=== PATIENT | female | born 1950 | race Caucasian/White ===

== ENCOUNTER 2018-11-04 17:48 | Emergency (ER) | payer MEDICARE, OTHER ==
--- NOTE | 2018-11-04 18:14 | EDM.PDOC ---
ED HPI GENERAL MEDICAL PROBLEM - General Stated Complaint: possible blood clot in leg Time Seen by Provider: 11/04/18 18:00 Source of Information: Reports: Patient - History of Present Illness INITIAL COMMENTS - FREE TEXT/NARRATIVE: Patient is a 68 YO [place]F [place] the [place] presented to the ED because apparently the right t leg is colder then the left with associated mild swelling. Patient has a PVD and according to her , her legs are usually cold. Her She had a transcatheter stent placement in both iliac arteries. right leg Pain Score (Numeric/FACES): 4 - Related Data Allergies Allergy/AdvReac Type Severity Reaction Status Date / Time No Known Allergies Allergy Verified 11/04/18 18:17 Home Meds: Home Meds Hydrochlorothiazide 12.5 mg PO DAILY 10/15/15 [History] Latanoprost [Xalatan 0.005% Ophth Soln] 1 drop EYEBOTH BEDTIME 10/15/15 [History ] Lisinopril 10 mg PO DAILY 10/15/15 [History] Multivitamin with Minerals [Multiple Vitamin] 1 ea PO DAILY 10/15/15 [History] Rosuvastatin Calcium [Crestor] 10 mg PO DAILY 10/15/15 [History] Acetaminophen [Tylenol] 650 mg PO Q4H PRN 11/04/18 [History] Aspirin [Adult Low Dose Aspirin EC] 81 mg PO DAILY 11/04/18 [History] Calcium Carbonate/Vitamin D3 [Calcium 500-Vit D3 200 Caplet] 1 tab PO DAILY [History] Cyclobenzaprine [Flexeril] 10 mg PO BEDTIME 11/04/18 [History] Docusate Sodium [Colace] 100 mg PO BID PRN 11/04/18 [History] Ferrous Gluconate 324 mg PO TID 11/04/18 [History] Folic Acid 1 mg PO DAILY 11/04/18 [History] Thiamine HCl [Vitamin B-1] 100 mg PO DAILY 11/04/18 [History] diphenhydrAMINE HCl [Unisom Sleepmelts] 25 mg PO BEDTIME PRN 11/04/18 [History] Past Medical History HEENT History: Reports: Cataract, Glaucoma Cardiovascular History: Reports: Hypertension, Other (See Below) Other Cardiovascular History: PERIFERAL ARTERY DISEASE, LEFT LEG ULCER, TRANSCATHETER PLACEMMENT WITH STENT TO LEFT ILEAC ARTERY BILATERAL Musculoskeletal History: Reports: Back Pain, Chronic Psychiatric History: Reports: Addiction Other Psychiatric History: ALCOHOL ADMITTING TO 35 DRINKS PER WEEK Dermatologic History: Reports: Other (See Below) Other Dermatologic History: SORE ON LEFT EAR LOBE - Past Surgical History HEENT Surgical History: Reports: Other (See Below) Female Surgical History: Reports: Breast Biopsy ED ROS GENERAL - Review of Systems Review Of Systems: See Below Constitutional: Reports: No Symptoms HEENT: Reports: No Symptoms Respiratory: Reports: No Symptoms Cardiovascular: Reports: No Symptoms Endocrine: Reports: No Symptoms GI/Abdominal: Reports: No Symptoms : Reports: No Symptoms Musculoskeletal: Reports: No Symptoms Skin: Reports: Other (purplish discoloration RLE,no palpable pulse) ED EXAM, GENERAL - Physical Exam Exam: See Below Exam Limited By: No Limitations General Appearance: Alert Ears: Normal External Exam, Normal Canal, Hearing Grossly Normal Nose: Normal Inspection, Normal Mucosa Throat/Mouth: Normal Inspection, Normal Lips Head: Atraumatic, Normocephalic Neck: Normal Inspection Respiratory/Chest: No Respiratory Distress, Lungs Clear, Normal Breath Sounds Cardiovascular: Normal Peripheral Pulses, Regular Rate, Rhythm, No Edema, No Murmur GI/Abdominal: Normal Bowel Sounds, Non-Tender, No Organomegaly (Female) Exam: Normal External Exam, Normal Speculum Exam Rectal (Female) Exam: Normal Exam, Normal Rectal Tone Back Exam: Normal Inspection, Full Range of Motion Extremities: Normal Inspection, Normal Range of Motion, Other (purplisf discoloration on both feet) Neurological: Alert, Oriented, CN II-XII Intact Course - Vital Signs Text/Narrative:: doppler US-see result Case discussed with Dr Raissa Rossi patient on heaprin drip Transfer to [facility] [place] Last Recorded V/S: Last Vital Signs Temp 36.6 C 11/04/18 17:35 Pulse 105 H 11/04/18 17:35 Resp 18 11/04/18 17:35 BP 138/75 11/04/18 17:35 Pulse Ox 100 11/04/18 17:35 - Orders/Labs/Meds Orders: Active Orders 24 hr Category Date Time Status VL Duplex Lwr Ext Veins Ltd Rt [US] Stat Exams 11/04/18 18:00 Taken Heparin Sodium/0.45% NaCl [Heparin 25,000 Units in 1/2 Med 11/04/18 19:30 Active NS 500 ML] 25,000 units in 500 ml IV TITRATE Sodium Chloride 0.9% [Saline Flush] Med 11/04/18 18:42 Active 10 ml FLUSH ASDIRECTED PRN Saline Lock Insert [OM.PC] Routine Oth 11/04/18 18:42 Ordered Medication Orders Heparin Sodium/Sodium Chloride (Heparin 25,000 Units In 1/2 Ns 500 Ml) 25,000 units in 500 mls @ 19.922 mls/hr IV TITRATE RIA; Protocol Sodium Chloride (Saline Flush) 10 ml FLUSH ASDIRECTED PRN PRN Reason: Keep Vein Open Meds: Medications Generic Name Dose Route Start Last Admin Trade Name Freq PRN Reason Stop Dose Admin Heparin Sodium/Sodium Chloride 25,000 units in 500 mls @ 19.922 mls/hr 19:30 Heparin 25,000 Units In 1/2 Ns 500 Ml IV TITRATE RIA Protocol 18 UNITS/KG/HR Sodium Chloride 10 ml 11/04/18 18:42 Saline Flush FLUSH ASDIRECTED PRN Keep Vein Open Discontinued Medications Generic Name Dose Route Start Last Admin Trade Name Freq PRN Reason Stop Dose Admin Heparin Sodium (Porcine) 4,427 units 11/04/18 19:30 Heparin Sodium IVPUSH 11/04/18 19:31 ONETIME ONE Departure - Departure Time of Disposition: 18:30 Disposition: DC/Tfer to SNF 03 Condition: Good Clinical Impression: Peripheral vascular disease, Thromboembolism - Discharge Information Instructions: Peripheral Vascular Disease Referrals: Mary Owen NP [Physician] - Forms: ED Department Discharge Additional Instructions: Continue your medications Follow up with your doctor this coming week - My Orders Last 24 Hours: My Active Orders 11/04/18 18:00 VL Duplex Lwr Ext Veins Ltd Rt [US] Stat 11/04/18 18:42 Sodium Chloride 0.9% [Saline Flush] 10 ml FLUSH ASDIRECTED PRN Saline Lock Insert [OM.PC] Routine 11/04/18 19:30 Heparin Sodium/0.45% NaCl [Heparin 25,000 Units in 1/2 NS 500 ML] 25,000 units in 500 ml IV TITRATE - Assessment/Plan Last 24 Hours: My Active Orders 11/04/18 18:00 VL Duplex Lwr Ext Veins Ltd Rt [US] Stat 11/04/18 18:42 Sodium Chloride 0.9% [Saline Flush] 10 ml FLUSH ASDIRECTED PRN Saline Lock Insert [OM.PC] Routine 11/04/18 19:30 Heparin Sodium/0.45% NaCl [Heparin 25,000 Units in 1/2 NS 500 ML] 25,000 units in 500 ml IV TITRATE
[2018-11-04] MEDS ORDERED: Sodium Chloride 0.9% 10 ML Syringe FLUSH PRN (18:42)
[2018-11-04] MEDS ORDERED: Heparin Sodium 5,000 Units/ML Vial IVPUSH ONE (19:30)
[2018-11-04] MEDS ORDERED: Heparin Sodium/0.45% NaCl 25,000 UNITS/500 ML BAG IV SCH (19:30)
[2018-11-04] MEDS ORDERED: Acetaminophen 500 MG Tab PO ONE (19:52)
[2018-11-04 20:15] VITALS: BP 141/104
== END 2018-11-04 20:45 ==
LOC: FB.ED 17:48
DX: I74.3 Embolism and thrombosis of arteries of the lower extremities (principal); I10 Essential (primary) hypertension; Z79.899 Other long term (current) drug therapy; Z79.82 Long term (current) use of aspirin
CPT/HCPCS: 36415; 85610; 85730; 93971; 96365; 99284; A9270; J1644